=== PATIENT | female | born 1975 | race Caucasian/White ===

== ENCOUNTER → 2017-07-06 | Outpatient (CLI) | payer BC ==
--- NOTE | 2017-07-06 13:07 | MAMMOGRAPHY REPORT ---
BILATERAL DIGITAL DIAGNOSTIC MAMMOGRAM TOMOSYNTHESIS WITH CAD AND TARGETED BILATERAL ULTRASOUND: 06/18 CLINICAL HISTORY: 42-year-old woman with extremely dense breasts called back from baseline screening mammogram for lateral posterior asymmetries in each breast, described on an outside mammogram report. TECHNIQUE: Bilateral spot compression CC and MLO tomosynthesis images were obtained. COMPARISON: Comparison is made to exam dated: 06/29/2017 mammogram. BREAST COMPOSITION: The tissue of both breasts is extremely dense, which lowers the sensitivity of m ammography. FINDINGS: The supplemental spot compression tomosynthesis views of the breasts demonstrate effacement of the lateral posterior asymmetries as described on the outside screening mammogram report. Curren tly, dense glandular tissue is seen in each breast without evidence of a discrete mass, focal area of distortion, or suspicious microcalcification. Targeted ultrasound was performed throughout each lateral breast. Sonographically normal dense tissu e is seen without a suspicious solid or cystic mass. IMPRESSION: ACR BI-RADS CATEGORY 2: BENIGN, TARGETED ULTRASOUND ACR BI-RADS CATEGORY 2: BENIGN There is effacement of the lateral posterior asymmetry in each breast with supplemental tomosynthesis images, and no suspicious sonographic correlate identified throughout each lateral breast on ultraso und. The asymmetries most likely represented normal fibroglandular tissue. Recommend routine screen ing tomosynthesis mammography in one year. Given the extremely dense breast parenchyma can consider additional supplemental screening with breast ultrasound. These results and recommendations were discussed with the patient at the time of the exam. Approximately 10% of breast cancers are not detected with mammography. A negative mammographic report should not delay biopsy if a clinically suggestive mass is present. Yesika Garcia M.D. ay/:07/06/2017 10:57:58 Can Coverer: Hillary MORRISON)(Janine), [facility] letter sent: Normal 1/2 BI-RADS Code: ACR BI-RADS Category 2: Benign Ultrasound BI-RADS: ACR BI-RADS Category 2: Benign
== END | disposition home or self-care (01) ==
LOC: C.MAMM 08:25
PROVIDERS: ATTEND Physician Assistant
DX: N64.89 Other specified disorders of breast (principal)